=== PATIENT | female | born 1960 | race Caucasian/White ===

== ENCOUNTER → 2018-03-27 | Outpatient (CLI) | payer OTHER | LOC: ZCOL.LAB 15:28 | DX: M25.571 Pain in right ankle and joints of right foot (principal) ==

== ENCOUNTER 2020-02-24 18:28 | Emergency (ER) | payer OTHER ==
[~2020-02-24] VITALS: Ht 157.5 cm; Wt 72.7 kg
[2020-02-24 18:28] VITALS: TEMP 100
[2020-02-24 21:25] VITALS: BP 116/62; PULSE 89
== END 2020-02-24 21:25 ==
LOC: COL.ER 18:28
DX: S82.302A Unspecified fracture of lower end of left tibia, initial encounter for closed fracture (principal); S82.832A Other fracture of upper and lower end of left fibula, initial encounter for closed fracture; I10 Essential (primary) hypertension; E11.9 Type 2 diabetes mellitus without complications; Z79.4 Long term (current) use of insulin; W19.XXXA Unspecified fall, initial encounter; X50.1XXA Overexertion from prolonged static or awkward postures, initial encounter; Y92.009 Unspecified place in unspecified non-institutional (private) residence as the place of occurrence of the external cause
CPT/HCPCS: J0295; J0690; J3010; J7030; Q4045

== ENCOUNTER → 2020-07-14 | Outpatient (REF) | payer OTHER | LOC: ZCOL.LAB 17:06 | DX: T81.89XA Other complications of procedures, not elsewhere classified, initial encounter (principal) ==

== ENCOUNTER 2020-08-02 08:51 | Emergency (ER) | payer OTHER ==
[~2020-08-02] VITALS: Ht 160 cm; Wt 72.7 kg
[2020-08-02 08:54] VITALS: TEMP 97.3
[2020-08-02 09:11] LABS: BASO # 0.1 (0.0-0.2); BASO % 1.1 % (0.0-2.0); EOS # 0.5 (0.0-0.7); EOS % 5.7 % (0-4.0); GRAN # 4.6 (1.4-6.5); GRAN % 56.3 % (42.2-75.2); HEMOGLOBIN 10.4 g/dl (12.5-16.0); LYMPH % 24.9 % (20.0-51.0); MEAN CELL VOLUME 86 fl (80.0-100.0); MEAN CORPUSCULAR HEMOGLOBIN 27 pg (27.0-31.0); MEAN CORPUSCULAR HGB CONC 32 g/dl (33.0-37.0); MEAN PLATELET VOLUME 8.9 fl (7.4-10.4); MONO % 11.8 % (1.7-9.3); PLATELET COUNT 421 K/mm3 (130-400); RED BLOOD COUNT 3.82 M/mm3 (4.10-5.30); REDCELL DISTRIBUTION WIDTH-CV 14.5 % (11.5-14.5)
[2020-08-02 09:25] LABS: ALBUMIN 4.2 gm/dL (3.5-5.0); BILIRUBIN,TOTAL 0.3 mg/dL (0.0-1.0); C-REACTIVE PROTEIN 1.9 mg/dL (0.0-0.9); CALCIUM 9.5 mg/dL (8.4-10.2); CREATININE, serum 1.03 (0.52-1.25); POTASSIUM 4.1 mmol/L (3.4-5.0); TOTAL PROTEIN 8.4 gm/dL (6.4-8.2)
[2020-08-02 09:55] VITALS: BP 122/73; PULSE 82
== END 2020-08-02 09:50 | disposition home or self-care (01) ==
LOC: COL.ER 08:51
PROVIDERS: Family Medicine
DX: E10.649 Type 1 diabetes mellitus with hypoglycemia without coma (principal); Z88.1 Allergy status to other antibiotic agents
CPT/HCPCS: J7120

== ENCOUNTER → 2020-08-14 | Outpatient (CLI) | payer OTHER ==
[~2020-08-14] MED LIST: ASPI325T6 PO; BACTRIM DS 8001 TAB PO; DUO-KAPS1 CAP PO; NORCO 325 MG-7.1 TAB PO; NOVOLOG FLEX100 U/ML SQ; OSCAL 500 TAB500 MG PO; PRINIVIL20 MG PO; TRESIBA100 UNIT/1 SQ; TYLENOL 325MG325 MG PO; VITAMIN C500 MG PO
[2020-08-14 13:20] LABS: BASO # 0.1 (0.0-0.2); EOS # 0.3 (0.0-0.7); EOS % 4.6 % (0-4.0); GRAN # 4.5 (1.4-6.5); GRAN % 66.9 % (42.2-75.2); HEMOGLOBIN 10.3 g/dl (12.5-16.0); LYMPH # 1.4 (1.2-3.4); LYMPH % 20.6 % (20.0-51.0); MEAN CELL VOLUME 89 fl (80.0-100.0); MEAN CORPUSCULAR HEMOGLOBIN 28 pg (27.0-31.0); MEAN CORPUSCULAR HGB CONC 31 g/dl (33.0-37.0); MEAN PLATELET VOLUME 8.8 fl (7.4-10.4); MONO # 0.4 (0.1-0.6); MONO % 6.6 % (1.7-9.3); PLATELET COUNT 424 K/mm3 (130-400); RED BLOOD COUNT 3.68 M/mm3 (4.10-5.30); REDCELL DISTRIBUTION WIDTH-CV 14.4 % (11.5-14.5)
[2020-08-14 13:22] LABS: HEMATOCRIT 32.9 % (37.0-47.0)
[2020-08-14 13:40] LABS: ALBUMIN 4.2 gm/dL (3.5-5.0); BILIRUBIN,TOTAL 0.2 mg/dL (0.0-1.0); C-REACTIVE PROTEIN 2.6 mg/dL (0.0-0.9); CALCIUM 9.7 mg/dL (8.4-10.2); CREATININE, serum 0.96 (0.52-1.25); POTASSIUM 4.5 mmol/L (3.4-5.0); TOTAL PROTEIN 8.3 gm/dL (6.4-8.2)
[2020-08-14 14:27] LABS: ERYTHROCYTE SEDIMENTATION RATE 67 mm/hr (0-30)
== END ==
LOC: COL.LAB
PROVIDERS: Nurse Practitioner
DX: T81.40XA Infection following a procedure, unspecified, initial encounter (principal)

== ENCOUNTER 2020-09-04 07:30 | Inpatient (IN) | payer OTHER ==
[~2020-09-04] VITALS: Ht 160 cm; Wt 75.0 kg
[2020-09-04] MEDS ORDERED: NOVOLOG FLEX100 U/ML SQ ×3 (08:08→10:35)
[2020-09-04] MEDS ORDERED: PRINIVIL20 MG PO (08:09)
[2020-09-04] MEDS ORDERED: TRESIBA100 UNIT/1 SQ (08:09)
[2020-09-04 09:11] LABS: BASO # 0.1 (0.0-0.2); BASO % 1.2 % (0.0-2.0); EOS # 0.1 (0.0-0.7); EOS % 1.5 % (0-4.0); GRAN # 5.9 (1.4-6.5); GRAN % 78.1 % (42.2-75.2); LYMPH # 0.9 (1.2-3.4); LYMPH % 11.3 % (20.0-51.0); MEAN CELL VOLUME 88 fl (80.0-100.0); MEAN CORPUSCULAR HGB CONC 32 g/dl (33.0-37.0); MEAN PLATELET VOLUME 8.8 fl (7.4-10.4); MONO # 0.6 (0.1-0.6); MONO % 7.5 % (1.7-9.3); PLATELET COUNT 475 K/mm3 (130-400); RED BLOOD COUNT 3.53 M/mm3 (4.10-5.30); REDCELL DISTRIBUTION WIDTH-CV 14.8 % (11.5-14.5)
[2020-09-04 09:13] LABS: INR 1.1 (0.8-3.0); PROTHROMBIN TIME 12.3 SECONDS (9.7-12.8)
[2020-09-04 09:16] LABS: ALANINE AMINOTRANSFERASE 22 U/L (4-34); ALBUMIN 4.6 gm/dL (3.5-5.0); ALKALINE PHOSPHATASE 126 U/L (50-136); ANION GAP 11 mmol/L (7-16); AST,SGOT 40 U/L (15-37); BILIRUBIN,TOTAL 0.3 mg/dL (0.0-1.0); BLOOD UREA NITROGEN 33 mg/dL (7-17); CALCIUM 9.9 mg/dL (8.4-10.2); CARBON DIOXIDE 26 mmol/L (22-30); CHLORIDE 102 mmol/L (98-107); CREATININE, serum 1.33 (0.52-1.25); GLUCOSE 68 mg/dL (74-106); HEMATOCRIT 30.9 % (37.0-47.0); HEMOGLOBIN 9.8 g/dl (12.5-16.0); LIPASE 50 U/L (23-300); MEAN CORPUSCULAR HEMOGLOBIN 28 pg (27.0-31.0); SODIUM 139 mmol/L (137-145); TOTAL PROTEIN 8.6 gm/dL (6.4-8.2)
[2020-09-04 09:29] LABS: TROPONIN-I < 0.012 ng/mL (0.000-0.035)
[2020-09-04] MEDS ORDERED: BACTRIM DS 8001 TAB PO (11:19)
--- NOTE | 2020-09-04 11:45 | NUR ---
PATIENT IS A&O. VSS. PATIENT C/O SEVERE PAIN IN LLE THAT IS UNRELIEVED WITH PAIN MEDS. ER GAVE IV FENTANYL, IV MORPHINE, IV ATIVAN AND ORAL PERCOCET AND PATIENT IS STILL MOANING, RESTLESS, AND APPEARS VERY ANXIOUS. B/P AND HR AND WNL. AFTER GETTING LAST DOSE OF IV PAIN MEDS, ER NOTED DROP IN O2 SATS AND PLACED PATIENT ON 1L PER NC, PATIENT NOW IN UPPER 90'S ON 1L. NOTED LLE IS SLIGHTLY SHORTENED AND IS SWOLLEN AT THE HIP. PATIENT REPORTS SHE LIVES AT HOME ALONE AND FELL. TEDS & SCD'S TO LLE. POSITIVE PEDAL PULSES TO BLE. IV FLUIDS INFUSING VIA PUMP INTO RIGHT AC IV. BS IS 83. NO C/O N/V. HEAD TO TOE ASSESSMENT COMPLETE. AT BEDSIDE.
--- NOTE | 2020-09-04 13:15 | NUR ---
PATIENT C/O SEVERE PAIN IN LLE. PATIENT VERY RESTLESS AND MOVE AROUND A LOT. PATIENT FOUND WITH BOTH BLE OVER BED RAIL. NURSING EDUCATED PATIENT ABOUT SAFETY AND NOT MOVING AROUND THE FRACTURED EXTREMITY. PATIENT SEEMS ANXIOUS AND TAKES IN LIMITED EDUCATION PROVIDED. BED ALARM ON. REPOSITIONED PATIENT BACK UP IN BED. PLACED PILLOW UNDER LLE. GAVE PRN NORCO FOR PAIN. WILL MONITOR.
--- NOTE | 2020-09-04 15:00 | NUR ---
PLACED GIBSON PER ORDERS. PATIENT TOLERATED WELL, NOTED 700CC OF BRIGHT YELLOW URINE. UA SENT TO LAB.
[2020-09-04 15:29] LABS: MUCOUS Present /lpf; PH 7 (5-8); SQUAMOUS EPITHELIAL 0-2 /hpf; URINE APPEARANCE Clear; URINE BACTERIA Rare /hpf; URINE BILIRUBIN Negative (NEGATIVE); URINE BLOOD Negative (NEGATIVE); URINE COLOR Yellow; URINE GLUCOSE Negative (NEGATIVE); URINE KETONE Trace (NEGATIVE); URINE LEUKOCYTE ESTERASE Negative (NEGATIVE); URINE NITRATE Negative (NEGATIVE); URINE PROTEIN(semi-quant) Negative (NEGATIVE); URINE RBC 0-2 /hpf; URINE UROBILINOGEN Negative (NEGATIVE)
--- NOTE | 2020-09-04 15:29 | NUR ---
WENT TO RE-ASSESS PAIN AFTER MEDS. PATIENT ON PHONE INTERVIEW FOR LAB. WILL CHECK BACK.
[2020-09-04 15:43] LABS: COLLECTION METHOD CATHETER
--- NOTE | 2020-09-04 16:10 | NUR ---
AND HOSPITALIST TRISTEN ROUNDING AT BEDSIDE. NURSING AND CAPSTONE STUDENT AT BEDSIDE. GAVE PRN OXYCODONE FOR PAIN.
[2020-09-04 16:28] VITALS: BP 145/54; PULSE 94; TEMP 98.9
[2020-09-04 20:08] VITALS: BP 121/62; PULSE 84; TEMP 98.1
--- NOTE | 2020-09-04 21:30 | NUR ---
Patient has lots of complaints of pain. Her breathing is labored and tachypneic. She is over on the right side of her bed with her head and shoulders hanging over the rail. Offered to help reposition patient but patient refused stating this is how she could get comfortable. PRN morphine and ativan given per orders.
--- NOTE | 2020-09-04 22:00 | NUR ---
Patient seems to be a little more comfortable. Breathing is slower and less labored. Patient still positioned with shoulders over the rail.
[2020-09-05] VITALS (11 sets, daily range): BP systolic 92–140; BP diastolic 42–80; PULSE 72–88; TEMP 97.5–98.3
--- NOTE | 2020-09-05 05:51 | NUR ---
Patient woke up with complaints of pain every few hours throughout the night. Morphine given as needed. Patient has been NPO since midnight for surgery today.
--- NOTE | 2020-09-05 07:30 | NUR ---
PATIENT IS VERY RESTLESS UPON WAKING. C/O SEVERE PAIN IN LEFT HIP AND DIDN'T RATE IT WHEN ASKED. PATIENT ASKING TO STAND UP OR DANGLE AT BEDSIDE. NURSING EDUCATED PATIENT ABOUT FRACTURE AND SAFETY. GAVE PRN IV MORPHINE AND IV ATIVAN PER ORDERS. PATIENT WAS ABLE TO SETTLE DOWN AND SLEEP FOR A COUPLE HOURS. SURGICAL CONSENT OBTAINED BEFORE. NO OTHER NEEDS.
[2020-09-05 07:31] LABS: BASO # 0.1 (0.0-0.2); EOS # 0.3 (0.0-0.7); EOS % 3.7 % (0-4.0); GRAN # 4.2 (1.4-6.5); GRAN % 63.1 % (42.2-75.2); HEMATOCRIT 26.6 % (37.0-47.0); HEMOGLOBIN 8.7 g/dl (12.5-16.0); LYMPH # 1.5 (1.2-3.4); LYMPH % 22.2 % (20.0-51.0); MEAN CELL VOLUME 87 fl (80.0-100.0); MEAN CORPUSCULAR HEMOGLOBIN 28 pg (27.0-31.0); MEAN CORPUSCULAR HGB CONC 33 g/dl (33.0-37.0); MEAN PLATELET VOLUME 9.4 fl (7.4-10.4); MONO # 0.7 (0.1-0.6); MONO % 9.9 % (1.7-9.3); PLATELET COUNT 390 K/mm3 (130-400); RED BLOOD COUNT 3.06 M/mm3 (4.10-5.30); REDCELL DISTRIBUTION WIDTH-CV 15.2 % (11.5-14.5)
[2020-09-05 07:40] LABS: CALCIUM 8.7 mg/dL (8.4-10.2); CREATININE, serum 0.97 (0.52-1.25); POTASSIUM 4.6 mmol/L (3.4-5.0)
--- NOTE | 2020-09-05 10:55 | NUR ---
PATIENT NOW AWAKE AND LEANING OVER BED RAIL, RESTLESS AND PANTING IN PAIN. PATIENT STILL HAVING A HARD TIME KEEPING EYES OPEN BUT RESPONDS APPROPRIATELY. GAVE PRN IV MORPHINE PER REQUEST. PATIENT SCHEDULED FOR SURGERY AT NOON AND SHOULD GO DOWN TO OR BE FOR TO LONG. PATIENT POSITIONED TO COMFORT. BED ALARM ON. GIBSON TO DD, EMPTIED. PRE-OP IV FLUIDS STARTED PER ORDERS. CONSENT ON CHART.
--- NOTE | 2020-09-05 11:15 | NUR ---
PATIENT GOING DOWN TO SURGERY. CONSENT ON CHART. IV FLUIDS VIA GRAVITY. PATIENT OFF FLOOR.
--- NOTE | 2020-09-05 15:08 | NUR ---
Supervisor Public Health Nursing attempted intake but patient reports she is in severe pain and cannot tolerate questions. Patient still in surgery at this time. SW will follow up tomorrow.
--- NOTE | 2020-09-05 16:30 | NUR ---
ROUNDING ON PATIENT, SOUND ASLEEP AND SNORING. VSS. NO NEEDS.
--- NOTE | 2020-09-05 18:00 | NUR ---
PATIENT IS NOW WAKING UP POST OP. DROWSY AND STILL OUT OF IT. PATIENT C/O SLEEPING ON HER BACK AND HAVING THE WEDGE PILLOW INPLACE POST OP. PATIENT REPOSITIONED UP IN BED TO COMFORT. VSS. DINNER TRAY ORDERED. BS WAS 232, SSI GIVEN. NO C/O N/V. CALL LIGHT IN REACH.
--- NOTE | 2020-09-05 20:30 | NUR ---
Patient done with post op vitals. VSS. Patient is complaining she cannot get comfortable and is having a lot of pain. Repositioned patient off of her left side. PRN morphine and ativan administered. Patient now resting in bed sleeping some. No other needs at this time. Call light is within reach.
[2020-09-06] VITALS (7 sets, daily range): BP systolic 108–140; BP diastolic 41–64; PULSE 78–94; TEMP 98.2–99.1
--- NOTE | 2020-09-06 04:33 | NUR ---
Patient took off wedge by herself and refuses to put it back on. Educated patient on importance of wearing it to follow hip percautions such as not crossing her legs over her midline. Patient stated she was aware but could not handle it. Patient laying leaned on her right side. Placed a pillow in between her knees. Morphine administered for pain. Call light in reach.
--- NOTE | 2020-09-06 04:57 | NUR ---
Patient yelling out for help. When entering the room, patient is panting and leaning her shoulders over the bed rail. Administered Page for pain. Reminded patient about the importance of the positioning of her hip.
--- NOTE | 2020-09-06 07:14 | NUR ---
Lying in bed with eyes open. Alert and oriented x4. Rates pain in left leg 1/, describes as sore. Is aware that PT and OT will come to work with her today, is nervous about pain but excited to get up out of the bed. Does not like to use the wedge between her legs as she feels that it makes her pain worse, refuses to use. Normal movement to left lower extremity. Aquacel to left hip CDI. Patient will order breakfast at this time. Denies additional needs at this time.
[2020-09-06 07:42] LABS: MEAN CELL VOLUME 87 fl (80.0-100.0); MEAN CORPUSCULAR HGB CONC 32 g/dl (33.0-37.0); MEAN PLATELET VOLUME 9.5 fl (7.4-10.4); PLATELET COUNT 302 K/mm3 (130-400); REDCELL DISTRIBUTION WIDTH-CV 14.8 % (11.5-14.5)
[2020-09-06 07:54] LABS: HEMATOCRIT 23.6 % (37.0-47.0); HEMOGLOBIN 7.6 g/dl (12.5-16.0); MEAN CORPUSCULAR HEMOGLOBIN 28 pg (27.0-31.0)
[2020-09-06 07:57] LABS: CALCIUM 8.6 mg/dL (8.4-10.2); CREATININE, serum 0.73 (0.52-1.25); POTASSIUM 4.5 mmol/L (3.4-5.0)
--- NOTE | 2020-09-06 09:47 | NUR ---
Initial visit; Patient thanked Washer And Capper Machine Operator for looking in on her and offering encouragement and God's blessings. Patient thanked Washer And Capper Machine Operator for offering Morning Prayer over the intercom every morning.
--- NOTE | 2020-09-06 11:02 | NUR ---
Patient sitting up in recliner. Rates pain 1/10, does not feel she needs pain medication at this time but will let me know when she does. Patient will order lunch at this time. Denies additional needs.
--- NOTE | 2020-09-06 11:19 | NUR ---
Tuber Machine Cutter met with patient to discuss discharge planning. Patient lives alone in [place] and makes the comment that she should have never moved to [place] from [place]. Patient states she does not care for [place]. Patient does not have a primary care physician and was not interested in getting set up with a PCP at this time in [place]. Patient states she was seeing a PCP in [place]. Patient obtains medications from [facility] and advised she has crutches and a walking boot at home. Patient states she is normally independent with ADLS. Patient reports her sister, Angélica is her DPOA-HC although SW did not locate copy in EMR. Patient states she has not told her sister about her hospitalization and surgery. SW reviewed recommendation for post acute rehab. Patient is open to this but also expressed concern about how she would pay her bills if she cannot work. SW advised rehab would be short term. Patient is agreeable to have referrals sent to [facility] and the three local [facility]: [facility] [address], and [facility]. Patient did not want a referral sent to [facility]. SW contacted [facility] Director to give referral. SW then contacted the three local SNFs and faxed referrals. SW will continue to follow.
--- NOTE | 2020-09-06 11:54 | NUR ---
Rating pain 2/10 in left leg and would like pain medication. Administer pain medication as prescribed. Remains sitting in recliner, waiting on lunch. Denies needs.
--- NOTE | 2020-09-06 16:05 | NUR ---
Cord Tire Builder spoke with Jessica at [facility] who advised they would have to decline referral. Jessica reports that patient's insurance has skilled benefits however she would be required to pay 100% until her $3000 deductible is met and per her financial team, patient has only met roughly $1200 of her deductible. Jessica states after deductible is met, patient would pay 40% out of pocket until her out of pocket of $8000 is met. ESTHER also spoke with Cleveland at [facility] who advised they can clinically accept, however are still waiting on insurance authorization which they have submitted for. Cleveland states he believes they should be in network with patient's insurance but patient may have a $500 co pay. ESTHER spoke with IPR Director Perri who may not have bed availability for patient.
--- NOTE | 2020-09-06 16:15 | NUR ---
Receive call from wound care in regards to patient needing dressing change to left lower extremity from prior procedure. Explain that I would need to talk with the patient to see area and what was needed and they will call back. Speak with the patient and she says that she has three areas to her left ankle area that she applies Mepilex AG, covers with telfa, then wraps with gregoria wrap. Remove current dressing from site. Clean each area with saline and q-tips. Small amount of yellow discharge from sites. Areas dried. Mepilex AG cut to fit wound areas, cover with telfa, then wrap with gregoria wrap. Wound care calls back and is updated that dressing was changed and what was used to change it. Patient also speaks to wound care at this time. Patient says that her pain is starting to increase in her left leg and would like pain medication. Will administer as prescribed.
--- NOTE | 2020-09-06 19:30 | NUR ---
RECEIVED CHANGE OF SHIFT REPORT FROM DAY SHIFT NURSE. PATIENT UP IN CHAIR, REPORTS HOSP BED UNCOMFORTABLE, TOO SOFT. AGREED TO TRY OVERLAY AIR MATTRESS TO TRY TO SLEEP IN BED TONIGHT. DENIES ANY OTHER NEEDS DURING REPORT.
--- NOTE | 2020-09-06 20:00 | NUR ---
DECREASED STRENGTH TO LLE S/P HIP SURGERY. DENIES NUMBNESS/TINGLING TO EXTREMITIES. DENIES CHEST PAIN/SOA/NAUSEA AT THIS TIME. GIBSON IN PLACE AND DRAINING.
[2020-09-07 03:56] VITALS: BP 128/62; PULSE 76; TEMP 97.1
[2020-09-07 06:47] LABS: MEAN CELL VOLUME 89 fl (80.0-100.0); MEAN CORPUSCULAR HGB CONC 31 g/dl (33.0-37.0); MEAN PLATELET VOLUME 9.4 fl (7.4-10.4); PLATELET COUNT 332 K/mm3 (130-400); RED BLOOD COUNT 2.95 M/mm3 (4.10-5.30); REDCELL DISTRIBUTION WIDTH-CV 15.2 % (11.5-14.5)
[2020-09-07 06:48] LABS: HEMATOCRIT 26.2 % (37.0-47.0); HEMOGLOBIN 8.2 g/dl (12.5-16.0); MEAN CORPUSCULAR HEMOGLOBIN 28 pg (27.0-31.0)
[2020-09-07 07:03] LABS: CALCIUM 8.9 mg/dL (8.4-10.2); CREATININE, serum 0.79 (0.52-1.25); POTASSIUM 4.1 mmol/L (3.4-5.0)
[2020-09-07 07:22] VITALS: BP 127/57; PULSE 79; TEMP 98.2
--- NOTE | 2020-09-07 07:40 | NUR ---
CHANGE OF SHIFT REPORT GIVEN TO DAY SHIFT NURSE, KENNY CARMICHAEL.
--- NOTE | 2020-09-07 08:00 | NUR ---
PATIENT IS ORIENTED BUT DROWSY FROM PAIN MEDS. PATIENT ASSISTED INTO BEDSIDE CHAIR WITH 1 ASSIST AND WALKER FOR BREAKFAST. METER SHOP SUPERINTENDENT DC'D GIBSON AND PATIENT WAS ABLE TO VOID. AQUACEL DRESSING TO LEFT HIPS IS CD&I. LEFT EDWARDS DRESSING FROM PREVIOUS TIB/FIB FRACTURE IS CD&I WITH ACEWRAP. TEDS TO RLE. SCD'S OFF. PT/OT CONSULTED. HEAD TO TOE ASSESSMENT COMPLETE. STUDENT NURSE WORKING WITH PATIENT TODAY, SEE STUDENT NOTES AND ASSESSMENT. PATIENT SEEMS ANNOYED TO BE ASSESSED BY BOTH A NURSE AND STUDENT NURSE. PATIENT IS EASILY AGGITATED AND SEEMS ANNOYED WITH CARES AND VITALS. PATIENT WANTING TO BE LEFT ALONE FOR A WHILE.
[2020-09-07 13:53] VITALS: BP 125/48; PULSE 81; TEMP 98.4
--- NOTE | 2020-09-07 14:11 | NUR ---
Human Resource Consultant gave referral to [facility] out of [place] as Perri, IPR Director advised they do not have any beds available at this time. ESTHER faxed clinical updates to Cleveland at [facility] [address] who advised he is still waiting on insurance authorization. SW met with patient to provide update. Patient expressed disappointment that IPR is not available. Patient is willing to go to [facility]. SW discussed the possibility of some out of pocket cost depending on what her insurance costs. Patient states she will have to make it work. SW discussed referrals to [facility] or [facility] and patient states she will not go out of town.
[2020-09-07 16:50] VITALS: BP 121/50; PULSE 84; TEMP 98.5
--- NOTE | 2020-09-07 18:00 | NUR ---
PATIENT VOICED CONCERNS ABOUT HER PREVIOUS TIB/FIB FRACTURE REPAIR THE DRESSING CHANGED. PATIENT REPORTS SHE WAS DOING EVENING DRESSING CHANGES TO HER LEFT LOWER EXTREMITY BEFORE BED, SEE ORDERS. PATIENT SEEMS TO GET FRUSTERATED EASILY AND IS, AT TIMES, HARD TO TALK DOWN. NURSING VISITED WITH PATIENT ABOUT THIS FOR AWHILE AND PATIENT SEEMS BETTER NOW. PATIENT HAS DISPLAYED IRRITABLE BEHAVIORS OFF AND ON THROUGHOUT THE SHIFT FOR MULTIPLE DIFFERENT REASONS.
[2020-09-07 19:36] VITALS: BP 117/52; PULSE 80; TEMP 97.8
--- NOTE | 2020-09-07 21:00 | NUR ---
Patient sitting up in chair. Kelso administered with bedtime medications. Dressing change to her left lower extremity done per patient request. Aquacell to left hip clean, dry, and intact. IV to left AC patent. No other needs at this time. Call light in reach.
[2020-09-07 23:13] VITALS: BP 123/50; PULSE 70; TEMP 97.5
[2020-09-08 04:13] VITALS: BP 121/73; PULSE 90; TEMP 97.4
--- NOTE | 2020-09-08 05:34 | NUR ---
Patient asked for her blood sugar to be taken because she felt like it was a little low. PAtient's blood sugar was 27. Hypoglycemic protocol administered D50. Will recheck in 15 minutes.
--- NOTE | 2020-09-08 06:01 | NUR ---
Patient's blood sugar is now 153.
[2020-09-08 06:50] LABS: MEAN CELL VOLUME 89 fl (80.0-100.0); MEAN CORPUSCULAR HGB CONC 31 g/dl (33.0-37.0); MEAN PLATELET VOLUME 9.5 fl (7.4-10.4); PLATELET COUNT 389 K/mm3 (130-400); RED BLOOD COUNT 3.03 M/mm3 (4.10-5.30); REDCELL DISTRIBUTION WIDTH-CV 15.3 % (11.5-14.5)
[2020-09-08 06:52] LABS: HEMATOCRIT 27.1 % (37.0-47.0); HEMOGLOBIN 8.4 g/dl (12.5-16.0); MEAN CORPUSCULAR HEMOGLOBIN 28 pg (27.0-31.0)
[2020-09-08 06:58] LABS: CALCIUM 9.1 mg/dL (8.4-10.2); CREATININE, serum 0.93 (0.52-1.25); POTASSIUM 4.1 mmol/L (3.4-5.0)
--- NOTE | 2020-09-08 07:30 | NUR ---
Patient is sitting up in the chair. Her Glucose was very low this morning so we discussed holding the insulin and rechecking it 2 hours after she eats. She was upset about it but explained she already had a huge drop this morning. Patient denies pain at this time. Dressing to hip is C/D/I. Encouraged patient to do incentive spirometer every hour. Patient is alert and oriented. No other changes at this time. Call light within reach.
[2020-09-08 08:46] VITALS: BP 105/52; PULSE 80; TEMP 97.8
[2020-09-08 13:31] VITALS: BP 105/44; PULSE 87; TEMP 98.3
--- NOTE | 2020-09-08 15:35 | NUR ---
Lead Java Programmer was contacted by Cleveland at [facility] [address] [facility] who advised he received authorization from patient's insurance. Cleveland advised patient will be billed for a $500 co pay. ESTHER met with patient to provide this update. Patient is agreeable to discharge to [facility] and verbalized understanding of the copay. ESTHER collaborated with Hospitalist who advised patient is not ready for discharge today, but possibly tomorrow. ESTHER updated Cleveland and patient.
[2020-09-08 17:14] VITALS: BP 115/49; PULSE 75; TEMP 98.3
--- NOTE | 2020-09-08 18:30 | NUR ---
Patient has been doing well this afternoon. Pain is well controlled with Roxicodone. No complaints of nausea. Patient sat up in the chair most the day. Encouraged her to keep her leg elevated, she stated that makes her back hurt. Patient should be discharging tomorrow to [facility]. No other changes at this time. Call light within reach.
[2020-09-08 19:22] VITALS: BP 109/54; PULSE 72; TEMP 98.4
--- NOTE | 2020-09-08 20:00 | NUR ---
Report received, assumed care for film processing shift supervisor. Sitting up in recliner. Assessment complete. A&Ox3. Denies pain/nausea/shortness of breath. VS stable. Voiding without difficulty. +flatus. Dressing changed to left foot-three small ulcers. Silver nitrate/non stick pad/gregoria per patients request. Dressing to left [id number]. States she removed her albaro hose from her right lower extremity-states doctor today stated that was okay. Plan of care discussed for this shift to include HS meds/pain meds/dressing change/blood sugar monitoring/calling for questions/concerns. Denies current needs. Call light in reach. Will monitor.
--- NOTE | 2020-09-08 22:42 | NUR ---
Called with c/o pain to awa morrissey-rating pain 5/10 on pain scale-described as constant ache with intermittent sharp pains. Oxycodone given per dr enriquez. Will continue to monitor.
--- NOTE | 2020-09-08 23:30 | NUR ---
Called stating pain in left hip is still 4/10 on pain scale-described as constant ache with intermittent throbbing. Refused ice pack. States it doesnt and wont help. Has been sitting in recliner since this nurse arrived at 1830. Refusing to lay down. Did agree to ambulate some to see if that helped. States she can wait another hour for PO pain meds instead of taking IV morphine. Will re-assess pain level at 0030.
[2020-09-09 00:01] VITALS: BP 118/42; PULSE 73; TEMP 98.1
--- NOTE | 2020-09-09 00:30 | NUR ---
Still rating pain 4/10 on pain scale to left hip-described as constant ache with intermittent throbbing. Rio one tab given per dr order. Will re-assess.
--- NOTE | 2020-09-09 01:42 | NUR ---
Resting eyes closed in recliner. No s/s of pain/discomfort noted. Call light in reach. Will monitor.
[2020-09-09 04:12] VITALS: BP 98/52; PULSE 73; TEMP 98.1
--- NOTE | 2020-09-09 05:35 | NUR ---
Report from PCT of bedside glucose of 312. Notified hospitalist-RADHA Dunham-celia to give sliding scale dose early. GIven at this time. Also c/o pain to left hip-rating pain 6/10 on pain scale-described as constant ache with sharp jabs. Oxycodone given per dr order. Still refusing ice pack. SCDs/TEDs refused. Denies any other needs. Call light in reach. Will monitor.
[2020-09-09 06:34] LABS: BASO # 0.1 (0.0-0.2); BASO % 1.1 % (0.0-2.0); EOS # 0.6 (0.0-0.7); GRAN # 3.5 (1.4-6.5); GRAN % 63.1 % (42.2-75.2); LYMPH # 0.9 (1.2-3.4); LYMPH % 15.4 % (20.0-51.0); MEAN CELL VOLUME 90 fl (80.0-100.0); MEAN CORPUSCULAR HGB CONC 31 g/dl (33.0-37.0); MEAN PLATELET VOLUME 9.2 fl (7.4-10.4); MONO # 0.6 (0.1-0.6); MONO % 10.2 % (1.7-9.3); PLATELET COUNT 362 K/mm3 (130-400); RED BLOOD COUNT 2.88 M/mm3 (4.10-5.30); REDCELL DISTRIBUTION WIDTH-CV 15.1 % (11.5-14.5)
[2020-09-09 06:38] LABS: HEMATOCRIT 25.9 % (37.0-47.0); HEMOGLOBIN 7.9 g/dl (12.5-16.0); MEAN CORPUSCULAR HEMOGLOBIN 27 pg (27.0-31.0)
[2020-09-09 06:40] LABS: CREATININE, serum 0.83 (0.52-1.25); POTASSIUM 5.2 mmol/L (3.4-5.0)
[2020-09-09 07:18] VITALS: BP 101/51; PULSE 66; TEMP 98
[2020-09-09] MEDS ORDERED: ASPI325T6 PO (08:52)
[2020-09-09] MEDS ORDERED: OSCAL 500 TAB500 MG PO (08:53)
[2020-09-09] MEDS ORDERED: NORCO 325 MG-7.1 TAB PO (08:53)
[2020-09-09] MEDS ORDERED: TYLENOL 325MG325 MG PO (08:53)
[2020-09-09] MEDS ORDERED: VITAMIN C500 MG PO (08:54)
[2020-09-09] MEDS ORDERED: DUO-KAPS1 CAP PO (08:55)
[2020-09-09 11:29] VITALS: BP 107/52; PULSE 70; TEMP 98.1
--- NOTE | 2020-09-09 11:46 | NUR ---
Patient will discharge to [facility] today 09/09. ESTHER faxed orders and coordinated care and transportation with Cleveland at [facility]. Patient's transport will arrive at 1300. Patient contacted family members to notify them of discharge. There are no new needs at this time.
[2020-09-09 12:10] VITALS: BP 107/52; PULSE 70; TEMP 98.1
--- NOTE | 2020-09-09 13:10 | NUR ---
Patient is discharging to [facility]. All belongings packed up and sent with patient. Attempted to call report but could not get through to the nurse taking over. Will try again. INT discontinued. Info packet sent with patient.
--- NOTE | 2020-09-09 14:30 | NUR ---
Report called to [facility].
== END 2020-09-09 13:15 | DRG 522 ==
LOC: COL.ER 07:30 → SURG 10:43
PROVIDERS: Emergency Medicine; Orthopaedic Surgery; Physician Assistant; ADMIT Student in an Organized Health Care Education/Training Program
PROC: 0SRB0J9 Replacement of Left Hip Joint with Synthetic Substitute, Cemented, Open Approach (ICD-10-PCS; principal; 2020-09-05 12:00)
DX: S72.002A Fracture of unspecified part of neck of left femur, initial encounter for closed fracture (principal); N17.9 Acute kidney failure, unspecified; E11.9 Type 2 diabetes mellitus without complications; I10 Essential (primary) hypertension; W01.0XXA Fall on same level from slipping, tripping and stumbling without subsequent striking against object, initial encounter; D64.9 Anemia, unspecified; D47.3 Essential (hemorrhagic) thrombocythemia; E11.649 Type 2 diabetes mellitus with hypoglycemia without coma; F41.9 Anxiety disorder, unspecified; Z20.822 Contact with and (suspected) exposure to COVID-19; Z66 Do not resuscitate
CPT/HCPCS: 99222-AI; 99231-AI; 99232-AI; 99233-AI; 99239; A4314; A9284; C1776; J0690; J1815; J2060; J2250; J2270; J2370; J2405; J2704; J3010; J7030; J7040; J7050

== ENCOUNTER → 2020-09-27 | Outpatient (CLI) | payer OTHER ==
[2020-09-27 09:35] LABS: BASO # 0.1 (0.0-0.2); BASO % 1.4 % (0.0-2.0); EOS # 0.3 (0.0-0.7); GRAN # 3.8 (1.4-6.5); GRAN % 58.4 % (42.2-75.2); LYMPH # 1.5 (1.2-3.4); LYMPH % 23.8 % (20.0-51.0); MEAN CELL VOLUME 91 fl (80.0-100.0); MEAN CORPUSCULAR HGB CONC 30 g/dl (33.0-37.0); MEAN PLATELET VOLUME 8.5 fl (7.4-10.4); MONO # 0.7 (0.1-0.6); MONO % 11.2 % (1.7-9.3); PLATELET COUNT 561 K/mm3 (130-400); RED BLOOD COUNT 3.55 M/mm3 (4.10-5.30); REDCELL DISTRIBUTION WIDTH-CV 16.2 % (11.5-14.5)
[2020-09-27 09:36] LABS: HEMATOCRIT 32.4 % (37.0-47.0); HEMOGLOBIN 9.8 g/dl (12.5-16.0); MEAN CORPUSCULAR HEMOGLOBIN 28 pg (27.0-31.0)
[2020-09-27 09:48] LABS: ALANINE AMINOTRANSFERASE 22 U/L (4-34); ALBUMIN 4.4 gm/dL (3.5-5.0); ALKALINE PHOSPHATASE 100 U/L (50-136); ANION GAP 13 mmol/L (7-16); AST,SGOT 29 U/L (15-37); BILIRUBIN,TOTAL < 0.1 mg/dL (0.0-1.0); BLOOD UREA NITROGEN 27 mg/dL (7-17); CALCIUM 9.6 mg/dL (8.4-10.2); CARBON DIOXIDE 25 mmol/L (22-30); CHLORIDE 100 mmol/L (98-107); CREATININE, serum 1.12 (0.52-1.25); GLUCOSE 74 mg/dL (74-106); POTASSIUM 4.4 mmol/L (3.4-5.0); SODIUM 137 mmol/L (137-145); TOTAL PROTEIN 8.9 gm/dL (6.4-8.2)
[2020-09-27 09:59] LABS: ERYTHROCYTE SEDIMENTATION RATE 44 mm/hr (0-30)
== END ==
LOC: COL.LAB 09:01
PROVIDERS: Nurse Practitioner
DX: B99.9 Unspecified infectious disease (principal)

== ENCOUNTER 2020-10-09 11:15 | Emergency (ER) | payer OTHER ==
[~2020-10-09] VITALS: Ht 160 cm; Wt 75.0 kg
[2020-10-09 11:19] VITALS: TEMP 97.8
[2020-10-09 12:02] LABS: BASO # 0.1 (0.0-0.2); BASO % 1.3 % (0.0-2.0); EOS # 0.2 (0.0-0.7); GRAN # 3.9 (1.4-6.5); GRAN % 65.3 % (42.2-75.2); HEMATOCRIT 32.3 % (37.0-47.0); HEMOGLOBIN 9.9 g/dl (12.5-16.0); LYMPH # 1.2 (1.2-3.4); MEAN CELL VOLUME 92 fl (80.0-100.0); MEAN CORPUSCULAR HEMOGLOBIN 28 pg (27.0-31.0); MEAN CORPUSCULAR HGB CONC 31 g/dl (33.0-37.0); MEAN PLATELET VOLUME 8.6 fl (7.4-10.4); MONO # 0.6 (0.1-0.6); MONO % 10.1 % (1.7-9.3); PLATELET COUNT 411 K/mm3 (130-400); RED BLOOD COUNT 3.51 M/mm3 (4.10-5.30); REDCELL DISTRIBUTION WIDTH-CV 15.9 % (11.5-14.5)
[2020-10-09 12:07] LABS: ALANINE AMINOTRANSFERASE 21 U/L (4-34); ALBUMIN 4.3 gm/dL (3.5-5.0); ALKALINE PHOSPHATASE 93 U/L (50-136); ANION GAP 9 mmol/L (7-16); AST,SGOT 32 U/L (15-37); BILIRUBIN,TOTAL < 0.1 mg/dL (0.0-1.0); BLOOD UREA NITROGEN 22 mg/dL (7-17); CALCIUM 9.5 mg/dL (8.4-10.2); CARBON DIOXIDE 29 mmol/L (22-30); CHLORIDE 102 mmol/L (98-107); CREATININE, serum 0.89 (0.52-1.25); GLUCOSE 56 mg/dL (74-106); POTASSIUM 4.2 mmol/L (3.4-5.0); SODIUM 139 mmol/L (137-145); TOTAL PROTEIN 8.6 gm/dL (6.4-8.2)
[2020-10-09 12:19] LABS: TROPONIN-I < 0.012 ng/mL (0.000-0.035)
[2020-10-09 13:55] VITALS: BP 146/70; PULSE 94
== END 2020-10-09 13:55 | disposition left against medical advice (07) ==
LOC: COL.ER 11:15
PROVIDERS: Emergency Medicine
DX: E11.649 Type 2 diabetes mellitus with hypoglycemia without coma (principal); Z88.1 Allergy status to other antibiotic agents; Z79.4 Long term (current) use of insulin; Z79.82 Long term (current) use of aspirin

== ENCOUNTER → 2020-11-08 | Outpatient (CLI) | payer OTHER ==
[2020-11-08 09:25] LABS: BASO # 0.1 (0.0-0.2); BASO % 0.9 % (0.0-2.0); EOS # 0.3 (0.0-0.7); EOS % 4.4 % (0-4.0); GRAN # 4.1 (1.4-6.5); GRAN % 64.3 % (42.2-75.2); LYMPH # 1.3 (1.2-3.4); LYMPH % 20.1 % (20.0-51.0); MEAN CELL VOLUME 92 fl (80.0-100.0); MEAN CORPUSCULAR HGB CONC 32 g/dl (33.0-37.0); MEAN PLATELET VOLUME 8.4 fl (7.4-10.4); MONO # 0.6 (0.1-0.6); PLATELET COUNT 319 K/mm3 (130-400); RED BLOOD COUNT 3.39 M/mm3 (4.10-5.30); REDCELL DISTRIBUTION WIDTH-CV 14.2 % (11.5-14.5)
[2020-11-08 09:27] LABS: HEMATOCRIT 31.2 % (37.0-47.0); HEMOGLOBIN 9.9 g/dl (12.5-16.0); MEAN CORPUSCULAR HEMOGLOBIN 29 pg (27.0-31.0)
[2020-11-08 09:37] LABS: ALANINE AMINOTRANSFERASE 20 U/L (4-34); ALBUMIN 4.1 gm/dL (3.5-5.0); ALKALINE PHOSPHATASE 91 U/L (50-136); ANION GAP 7 mmol/L (7-16); AST,SGOT 30 U/L (15-37); BILIRUBIN,TOTAL < 0.1 mg/dL (0.0-1.0); BLOOD UREA NITROGEN 29 mg/dL (7-17); C-REACTIVE PROTEIN 0.9 mg/dL (0.0-0.9); CALCIUM 9.2 mg/dL (8.4-10.2); CARBON DIOXIDE 29 mmol/L (22-30); CHLORIDE 101 mmol/L (98-107); CREATININE, serum 0.99 (0.52-1.25); GLUCOSE 115 mg/dL (74-106); POTASSIUM 5.5 mmol/L (3.4-5.0); SODIUM 137 mmol/L (137-145); TOTAL PROTEIN 7.5 gm/dL (6.4-8.2)
[2020-11-08 09:51] LABS: ERYTHROCYTE SEDIMENTATION RATE 42 mm/hr (0-30)
== END ==
LOC: COL.LAB 09:01
PROVIDERS: Nurse Practitioner
DX: B99.9 Unspecified infectious disease (principal)

== ENCOUNTER → 2020-11-28 | Outpatient (CLI) | payer OTHER ==
[2020-11-28 08:06] LABS: CHOLESTEROL RISK RATIO 2.8
== END ==
LOC: COL.LAB 07:17
DX: E78.5 Hyperlipidemia, unspecified (principal)

== ENCOUNTER 2020-12-08 08:37 | Emergency (ER) | payer OTHER ==
[~2020-12-08] VITALS: Ht 160 cm; Wt 75.0 kg
[2020-12-08 08:38] VITALS: TEMP 97.6
[2020-12-08 09:21] LABS: BASO # 0.1 (0.0-0.2); EOS # 0.3 (0.0-0.7); GRAN # 3.9 (1.4-6.5); GRAN % 54.7 % (42.2-75.2); HEMOGLOBIN 11.2 g/dl (12.5-16.0); LYMPH # 1.9 (1.2-3.4); LYMPH % 27.4 % (20.0-51.0); MEAN CELL VOLUME 90 fl (80.0-100.0); MEAN CORPUSCULAR HEMOGLOBIN 28 pg (27.0-31.0); MEAN CORPUSCULAR HGB CONC 32 g/dl (33.0-37.0); MONO # 0.9 (0.1-0.6); MONO % 12.8 % (1.7-9.3); PLATELET COUNT 371 K/mm3 (130-400); RED BLOOD COUNT 3.96 M/mm3 (4.10-5.30); REDCELL DISTRIBUTION WIDTH-CV 13.5 % (11.5-14.5)
[2020-12-08 09:23] LABS: HEMATOCRIT 35.6 % (37.0-47.0)
[2020-12-08 09:27] LABS: ALBUMIN 4.4 gm/dL (3.5-5.0); BILIRUBIN,TOTAL 0.2 mg/dL (0.0-1.0); CALCIUM 9.5 mg/dL (8.4-10.2); CREATININE, serum 0.98 (0.52-1.25); POTASSIUM 3.8 mmol/L (3.4-5.0); TOTAL PROTEIN 8.3 gm/dL (6.4-8.2)
[2020-12-08 09:54] VITALS: BP 131/66; PULSE 81
== END 2020-12-08 09:56 | disposition home or self-care (01) ==
LOC: COL.ER 08:37
PROVIDERS: Family Medicine
DX: E11.649 Type 2 diabetes mellitus with hypoglycemia without coma (principal); Z79.4 Long term (current) use of insulin
CPT/HCPCS: J7042

== ENCOUNTER → 2021-02-09 | Outpatient (CLI) | payer OTHER ==
[2021-02-09 10:14] LABS: BASO # 0.1 (0.0-0.2); BASO % 1.4 % (0.0-2.0); EOS # 0.2 (0.0-0.7); EOS % 4.2 % (0-4.0); GRAN # 3.5 (1.4-6.5); GRAN % 63.6 % (42.2-75.2); HEMOGLOBIN 10.8 g/dl (12.5-16.0); LYMPH # 1.1 (1.2-3.4); LYMPH % 19.9 % (20.0-51.0); MEAN CELL VOLUME 90 fl (80.0-100.0); MEAN CORPUSCULAR HEMOGLOBIN 29 pg (27.0-31.0); MEAN CORPUSCULAR HGB CONC 32 g/dl (33.0-37.0); MEAN PLATELET VOLUME 8.3 fl (7.4-10.4); MONO # 0.6 (0.1-0.6); MONO % 10.5 % (1.7-9.3); PLATELET COUNT 265 K/mm3 (130-400); RED BLOOD COUNT 3.77 M/mm3 (4.10-5.30); REDCELL DISTRIBUTION WIDTH-CV 14.1 % (11.5-14.5)
[2021-02-09 10:16] LABS: HEMATOCRIT 33.9 % (37.0-47.0)
[2021-02-09 10:26] LABS: ALANINE AMINOTRANSFERASE 27 U/L (4-34); ALBUMIN 4.3 gm/dL (3.5-5.0); ALKALINE PHOSPHATASE 76 U/L (50-136); ANION GAP 6 mmol/L (7-16); AST,SGOT 35 U/L (15-37); BILIRUBIN,TOTAL < 0.1 mg/dL (0.0-1.0); BLOOD UREA NITROGEN 24 mg/dL (7-17); CALCIUM 9.3 mg/dL (8.4-10.2); CARBON DIOXIDE 30 mmol/L (22-30); CHLORIDE 100 mmol/L (98-107); CREATININE, serum 1.06 (0.52-1.25); GLUCOSE 160 mg/dL (74-106); POTASSIUM 5.1 mmol/L (3.4-5.0); SODIUM 136 mmol/L (137-145); TOTAL PROTEIN 7.6 gm/dL (6.4-8.2)
[2021-02-09 10:37] LABS: ERYTHROCYTE SEDIMENTATION RATE 43 mm/hr (0-30)
== END ==
LOC: COL.LAB 09:24
DX: B99.9 Unspecified infectious disease (principal)

== ENCOUNTER → 2021-04-06 | Outpatient (CLI) | payer OTHER ==
[2021-04-06 08:39] LABS: BASO # 0.1 K/mm3 (0.0-0.2); BASO % 1.1 % (0.0-2.0); EOS # 0.2 K/mm3 (0.0-0.7); EOS % 3.2 % (0-4.0); GRAN # 3.7 K/mm3 (1.4-6.5); GRAN % 59.3 % (42.2-75.2); HEMOGLOBIN 11.2 g/dl (12.5-16.0); LYMPH # 1.4 K/mm3 (1.2-3.4); LYMPH % 22.3 % (20.0-51.0); MEAN CELL VOLUME 92 fl (80.0-100.0); MEAN CORPUSCULAR HEMOGLOBIN 29 pg (27.0-31.0); MEAN CORPUSCULAR HGB CONC 32 g/dl (33.0-37.0); MEAN PLATELET VOLUME 8.6 fl (7.4-10.4); MONO # 0.9 K/mm3 (0.1-0.6); MONO % 13.8 % (1.7-9.3); PLATELET COUNT 325 K/mm3 (130-400); RED BLOOD COUNT 3.86 M/mm3 (4.10-5.30); REDCELL DISTRIBUTION WIDTH-CV 13.5 % (11.5-14.5)
[2021-04-06 08:40] LABS: HEMATOCRIT 35.3 % (37.0-47.0)
[2021-04-06 08:56] LABS: ALBUMIN 3.7 gm/dL (3.4-4.8); BILIRUBIN,TOTAL 0.2 mg/dL (0.2-1.2); C-REACTIVE PROTEIN 0.9 mg/dL (0.00-0.50); CALCIUM 9.5 mg/dL (8.4-10.2); CREATININE, serum 0.99 mg/dL (0.57-1.11); POTASSIUM 4.4 mmol/L (3.5-4.5); TOTAL PROTEIN 7.6 gm/dL (6.2-8.1)
[2021-04-06 09:10] LABS: ERYTHROCYTE SEDIMENTATION RATE 32 mm/hr (0-30)
== END ==
LOC: COL.LAB 08:21
DX: B99.9 Unspecified infectious disease (principal)

== ENCOUNTER → 2021-06-01 | Outpatient (CLI) | payer OTHER ==
[2021-06-01 08:18] LABS: BASO # 0.1 K/mm3 (0.0-0.2); BASO % 1.3 % (0.0-2.0); EOS # 0.3 K/mm3 (0.0-0.7); EOS % 5.1 % (0-4.0); GRAN # 3.9 K/mm3 (1.4-6.5); GRAN % 63.7 % (42.2-75.2); HEMOGLOBIN 11.8 g/dl (12.5-16.0); LYMPH # 1.3 K/mm3 (1.2-3.4); LYMPH % 20.4 % (20.0-51.0); MEAN CELL VOLUME 90 fl (80.0-100.0); MEAN CORPUSCULAR HEMOGLOBIN 29 pg (27.0-31.0); MEAN CORPUSCULAR HGB CONC 32 g/dl (33.0-37.0); MEAN PLATELET VOLUME 8.3 fl (7.4-10.4); MONO # 0.6 K/mm3 (0.1-0.6); MONO % 9.2 % (1.7-9.3); PLATELET COUNT 317 K/mm3 (130-400); RED BLOOD COUNT 4.06 M/mm3 (4.10-5.30)
[2021-06-01 08:23] LABS: HEMATOCRIT 36.7 % (37.0-47.0)
[2021-06-01 08:38] LABS: ALBUMIN 3.8 gm/dL (3.4-4.8); BILIRUBIN,TOTAL 0.3 mg/dL (0.2-1.2); C-REACTIVE PROTEIN 1.66 mg/dL (0.00-0.50); CALCIUM 9.8 mg/dL (8.4-10.2); CREATININE, serum 0.9 mg/dL (0.57-1.11); POTASSIUM 4.5 mmol/L (3.5-4.5); TOTAL PROTEIN 7.8 gm/dL (6.2-8.1)
[2021-06-01 09:49] LABS: ERYTHROCYTE SEDIMENTATION RATE 37 mm/hr (0-30)
== END ==
LOC: COL.LAB 08:00
PROVIDERS: Nurse Practitioner
DX: B99.9 Unspecified infectious disease (principal)

== ENCOUNTER → 2021-06-05 | Outpatient (CLI) | payer OTHER ==
[2021-06-05 08:44] LABS: ALBUMIN 3.9 gm/dL (3.4-4.8); BILIRUBIN,TOTAL 0.2 mg/dL (0.2-1.2); CALCIUM 9.7 mg/dL (8.4-10.2); CREATININE, serum 0.93 mg/dL (0.57-1.11); POTASSIUM 4.6 mmol/L (3.5-4.5); TOTAL PROTEIN 7.8 gm/dL (6.2-8.1)
== END ==
LOC: COL.LAB 08:01
DX: E10.9 Type 1 diabetes mellitus without complications (principal)

== ENCOUNTER 2021-07-10 09:29 | Emergency (ER) | payer OTHER ==
[~2021-07-10] VITALS: Ht 160 cm; Wt 75.0 kg
[2021-07-10 09:30] VITALS: TEMP 97.6
[2021-07-10 10:24] VITALS: BP 161/87; PULSE 74
== END 2021-07-10 10:34 | disposition home or self-care (01) ==
LOC: COL.ER 09:29
DX: E10.649 Type 1 diabetes mellitus with hypoglycemia without coma (principal)

== ENCOUNTER → 2021-09-21 | Outpatient (CLI) | payer OTHER ==
[2021-09-21 09:41] LABS: BASO # 0.1 K/mm3 (0.0-0.2); BASO % 0.9 % (0.0-2.0); EOS # 0.2 K/mm3 (0.0-0.7); EOS % 2.8 % (0.0-4.0); GRAN # 4.1 K/mm3 (1.4-6.5); GRAN % 63.7 % (42.2-75.2); HEMOGLOBIN 12.1 g/dl (12.5-16.0); LYMPH # 1.5 K/mm3 (1.2-3.4); LYMPH % 23.1 % (20.0-51.0); MEAN CELL VOLUME 89 fl (80.0-100.0); MEAN CORPUSCULAR HEMOGLOBIN 29 pg (27-31); MEAN CORPUSCULAR HGB CONC 33 g/dl (33.0-37.0); MEAN PLATELET VOLUME 8.3 fl (7.4-10.4); MONO # 0.6 K/mm3 (0.1-0.6); MONO % 9.3 % (1.7-9.3); PLATELET COUNT 305 K/mm3 (130-400); RED BLOOD COUNT 4.18 M/mm3 (4.10-5.30); REDCELL DISTRIBUTION WIDTH-CV 13.4 % (11.5-14.5)
[2021-09-21 10:00] LABS: ALBUMIN 3.7 gm/dL (3.4-4.8); BILIRUBIN,TOTAL 0.2 mg/dL (0.2-1.2); C-REACTIVE PROTEIN 0.88 mg/dL (0.00-0.50); CALCIUM 9.5 mg/dL (8.4-10.2); CREATININE, serum 1.03 mg/dL (0.57-1.11); POTASSIUM 5.2 mmol/L (3.5-4.5); TOTAL PROTEIN 7.5 gm/dL (6.2-8.1)
[2021-09-21 10:13] LABS: ERYTHROCYTE SEDIMENTATION RATE 28 mm/hr (0-30)
== END ==
LOC: COL.LAB 09:10
PROVIDERS: Nurse Practitioner
DX: B99.9 Unspecified infectious disease (principal)

== ENCOUNTER → 2021-12-11 | Outpatient (CLI) | payer OTHER ==
[2021-12-11 09:35] LABS: BASO # 0.1 K/mm3 (0.0-0.2); EOS # 0.3 K/mm3 (0.0-0.7); EOS % 4.1 % (0.0-4.0); GRAN # 4.4 K/mm3 (1.4-6.5); HEMOGLOBIN 11.7 g/dl (12.5-16.0); LYMPH # 1.7 K/mm3 (1.2-3.4); LYMPH % 23.2 % (20.0-51.0); MEAN CELL VOLUME 90 fl (80.0-100.0); MEAN CORPUSCULAR HEMOGLOBIN 29 pg (27-31); MEAN CORPUSCULAR HGB CONC 32 g/dl (33.0-37.0); MEAN PLATELET VOLUME 8.5 fl (7.4-10.4); MONO # 0.7 K/mm3 (0.1-0.6); MONO % 9.6 % (1.7-9.3); PLATELET COUNT 307 K/mm3 (130-400); RED BLOOD COUNT 4.01 M/mm3 (4.10-5.30); REDCELL DISTRIBUTION WIDTH-CV 12.7 % (11.5-14.5)
[2021-12-11 09:37] LABS: HEMATOCRIT 36.1 % (37.0-47.0)
[2021-12-11 09:52] LABS: ALBUMIN 3.5 gm/dL (3.4-4.8); CALCIUM 9.6 mg/dL (8.4-10.2); CREATININE, serum 0.9 mg/dL (0.57-1.11); POTASSIUM 4.8 mmol/L (3.5-4.5)
== END ==
LOC: COL.LAB 09:07
PROVIDERS: Internal Medicine
DX: E10.9 Type 1 diabetes mellitus without complications (principal); I10 Essential (primary) hypertension

== ENCOUNTER 2022-01-07 05:07 | Day surgery (SDC) | payer OTHER ==
[~2022-01-07] VITALS: Ht 160 cm; Wt 84.0 kg
[2022-01-07] VITALS (10 sets, daily range): BP systolic 110–128; BP diastolic 49–75; PULSE 56–68; TEMP 97–98.2
[2022-01-07] MEDS ORDERED: HUMALOG100 U/ML SQ (05:47)
[2022-01-07] MEDS ORDERED: PRINIVIL20 MG PO (05:48)
--- NOTE | 2022-01-07 06:55 | NUR ---
PT was taken to the PACU by Ministerio to recieve a block
--- NOTE | 2022-01-07 11:42 | NUR ---
PT TO ROOM 332 PER BED WITH REPORT FROM ALISSA CARMICHAEL PACU @1050. PT IS A/O X3 LUNGS CTA, BOWEL SOUNDS PRESENT. LEFT LEG IN OCCLUSIVE BULKY ZEHRA WRAP. PT DENIES PAIN AT THIS TIME. IV TO PUMP AND SCDS PLACED.
--- NOTE | 2022-01-07 11:45 | NUR ---
CALLED CONSULT FOR MEDICAL MANGEMENT TO ENIO RAMON.
--- NOTE | 2022-01-07 11:50 | NUR ---
CALLED CONSULT TO DR. GUILLERMO ID.
--- NOTE | 2022-01-07 16:52 | NUR ---
PT UP WITH THERAPY AMBULATING IN HALLS. RETURNED TO RECLINER. UP TO BATHROOM PRN. VOIDING NO ISSUES AT THIS TIME. REINFORCED DRESSING WITH ABD AND ZEHRA WRAP. PT OOZING AFTER AMBULATION WITH THERAPY.
--- NOTE | 2022-01-07 23:28 | NUR ---
PATIENT IN CHAIR ON ROOM ENTRY. ALERT AND ORIENTED. HS MEDS PER EMAR. PATIENT DENYING PAIN AND REFUSED TYLENOL AND TORADOL DOSE. PATIENT ALSO REFUSED SENOKOT AT THIS TIME. LLE DRESSING CDI. ICE IN PLACE. DENIES ADDITIONAL NEEDS.
[2022-01-08 00:04] VITALS: BP 103/56; PULSE 58; TEMP 98.5
[2022-01-08 01:00] VITALS: BP 114/62; PULSE 64; TEMP 98.7
--- NOTE | 2022-01-08 01:11 | NUR ---
patient called out, iv beeping. iv to int per order. patient in chair, stated she needed to use the bathroom. legs were elevated and patient began scooting forward and slid out of chair onto floor when legs of chair dropped. patient landed on a pillow on her left hip. denies pain, vss. patient alert and oriented. did not hit head. patient assisted back to standing and ambulated with standby assist to bathroom and voided without issue. patient ambulated back to chair, legs elevated. continues to deny pain. rain morrison notified.
[2022-01-08 04:27] VITALS: BP 119/55; PULSE 65; TEMP 98.9
[2022-01-08 06:50] LABS: BASO % 0.3 % (0.0-2.0); GRAN % 84.3 % (42.2-75.2); HEMOGLOBIN 10.1 g/dl (12.5-16.0); LYMPH # 0.9 K/mm3 (1.2-3.4); LYMPH % 7.4 % (20.0-51.0); MEAN CELL VOLUME 90 fl (80.0-100.0); MEAN CORPUSCULAR HEMOGLOBIN 30 pg (27-31); MEAN CORPUSCULAR HGB CONC 33 g/dl (33.0-37.0); MEAN PLATELET VOLUME 9.2 fl (7.4-10.4); MONO # 0.9 K/mm3 (0.1-0.6); MONO % 7.6 % (1.7-9.3); PLATELET COUNT 325 K/mm3 (130-400); RED BLOOD COUNT 3.41 M/mm3 (4.10-5.30); REDCELL DISTRIBUTION WIDTH-CV 12.8 % (11.5-14.5)
[2022-01-08 06:54] LABS: HEMATOCRIT 30.8 % (37.0-47.0)
[2022-01-08 07:08] LABS: ALBUMIN 3.1 gm/dL (3.4-4.8); BILIRUBIN,TOTAL 0.2 mg/dL (0.2-1.2); CALCIUM 8.8 mg/dL (8.4-10.2); CREATININE, serum 1.01 mg/dL (0.57-1.11); POTASSIUM 4.8 mmol/L (3.5-4.5); TOTAL PROTEIN 6.5 gm/dL (6.2-8.1)
[2022-01-08 07:31] VITALS: BP 122/58; PULSE 68; TEMP 98.7
--- NOTE | 2022-01-08 11:01 | NUR ---
Cannon Fire Direction Specialist met with patient to discuss discharge planning. Patient lives alone in [place], [place] and sees Dr. Fermin Hernadez for primary care. Patient obtains medications from [facility] or from a home delivery program through her insurance. Patient has a cane that she uses as needed and reports independence with ADLS. Patient advised that her sister, Angélica (ph#[phone]) is her DPOA-HC. Patient plans to return home at time of discharge. Discharge Plan: Home
[2022-01-08] MEDS ORDERED: OSCAL 500 TAB500 MG PO (11:42)
[2022-01-08] MEDS ORDERED: VTAMINC250TA PO (11:43)
--- NOTE | 2022-01-08 12:30 | NUR ---
PT DISCHARGED TO HOME @ THIS TIME. PT LIVES ALONE BUT IS GETTING A RIDE HOME FROM A COWORKER VIA PRIVATE VEHICLE. PT ASSISTED TO ED ENTRANCE VIA WC PUSHED BY KAY MCLAIN. PT'S DRESSING TO RIGHT LEG WAS CHANGED THIS AM. DRESSING WAS SOAKED, DRAINAGE IS SEROUSANGUINEOUS, LLOYD INTACT TO BOTH INCISIONS. ABD, GAUZE ROLL ET NEW ZEHRA WRAP APPLIED. PT HAD REFUSED SEVERAL MEDICATIONS THIS AM ET ALSO REFUSES TO FOLLOW FALL PRECAUTIONS, WALKS AROUND ROOM BY SELF. PT EDUCATED SEVERAL TIMES ET REFUSES.
--- NOTE | 2022-01-08 14:02 | NUR ---
Initial visit; Patient works in Hospital [employer] and states she hears Resource Conservation Manager do "Morning Prayer," every morning and thanked Resource Conservation Manager for looking in on her and offering God's blessings.
== END 2022-01-08 12:30 | disposition home or self-care (01) ==
LOC: SDCO 05:07 → SURG 10:50 → SDCO 01-08 12:30
PROVIDERS: Physician Assistant
DX: T84.84XA Pain due to internal orthopedic prosthetic devices, implants and grafts, initial encounter (principal); Z79.4 Long term (current) use of insulin
CPT/HCPCS: OP; 99222; A9284; J0690; J1100; J1580; J1815; J1885; J2250; J2405; J2704; J2795; J3010; J7030

== ENCOUNTER 2022-03-12 09:17 | Emergency (ER) | payer OTHER ==
[~2022-03-12] VITALS: Ht 160 cm; Wt 75.0 kg
[~2022-03-12 09:17] MED LIST changes: +HUMALOG100 U/ML SQ; +VTAMINC250TA PO
[2022-03-12 09:19] VITALS: TEMP 98.5
[2022-03-12 10:14] LABS: ALBUMIN 4.1 gm/dL (3.4-4.8); BILIRUBIN,TOTAL 0.2 mg/dL (0.2-1.2); TOTAL PROTEIN 7.8 gm/dL (6.2-8.1)
[2022-03-12 10:20] VITALS: BP 164/39; PULSE 78
== END 2022-03-12 10:20 | disposition home or self-care (01) ==
LOC: COL.ER 09:17
PROVIDERS: Family Medicine
DX: E11.649 Type 2 diabetes mellitus with hypoglycemia without coma (principal)
CPT/HCPCS: J7042

== ENCOUNTER → 2022-03-18 | Outpatient (CLI) | payer OTHER ==
[2022-03-18 08:00] LABS: ALBUMIN 3.8 gm/dL (3.4-4.8); BILIRUBIN,TOTAL 0.3 mg/dL (0.2-1.2); CALCIUM 9.9 mg/dL (8.4-10.2); CHOLESTEROL RISK RATIO 3.5; CREATININE, serum 1.03 mg/dL (0.57-1.11); POTASSIUM 4.8 mmol/L (3.5-4.5); TOTAL PROTEIN 7.6 gm/dL (6.2-8.1)
[2022-03-18 08:14] LABS: THYROID STIMULATING HORMONE 2.47 uIU/mL (0.350-4.940)
== END ==
LOC: COL.LAB 07:05
DX: E10.9 Type 1 diabetes mellitus without complications (principal)

== ENCOUNTER 2022-09-26 08:10 | Emergency (ER) | payer OTHER ==
[~2022-09-26] VITALS: Ht 160 cm; Wt 75.0 kg
[2022-09-26 08:13] VITALS: TEMP 97.5
[2022-09-26 08:27] LABS: BASO # 0.1 K/mm3 (0.0-0.2); BASO % 0.9 % (0.0-2.0); EOS # 0.2 K/mm3 (0.0-0.7); EOS % 1.6 % (0.0-4.0); GRAN # 6.7 K/mm3 (1.4-6.5); GRAN % 64.2 % (42.2-75.2); HEMATOCRIT 39.4 % (37.0-47.0); HEMOGLOBIN 12.8 g/dl (12.5-16.0); LYMPH # 2.1 K/mm3 (1.2-3.4); LYMPH % 20.5 % (20.0-51.0); MEAN CELL VOLUME 89 fl (80.0-100.0); MEAN CORPUSCULAR HEMOGLOBIN 29 pg (27-31); MEAN CORPUSCULAR HGB CONC 33 g/dl (33.0-37.0); MEAN PLATELET VOLUME 8.7 fl (7.4-10.4); MONO # 1.3 K/mm3 (0.1-0.6); MONO % 12.6 % (1.7-9.3); PLATELET COUNT 388 K/mm3 (130-400); RED BLOOD COUNT 4.43 M/mm3 (4.10-5.30); REDCELL DISTRIBUTION WIDTH-CV 13.7 % (11.5-14.5)
[2022-09-26 08:46] LABS: ALBUMIN 4.1 gm/dL (3.4-4.8); BILIRUBIN,TOTAL 0.2 mg/dL (0.2-1.2); CREATININE, serum 0.76 mg/dL (0.57-1.11); POTASSIUM 3.9 mmol/L (3.5-4.5); TOTAL PROTEIN 7.9 gm/dL (6.2-8.1)
[2022-09-26 10:39] VITALS: BP 158/64; PULSE 82
== END 2022-09-26 10:39 | disposition home or self-care (01) ==
LOC: COL.ER 08:10
PROVIDERS: Emergency Medicine
DX: E10.649 Type 1 diabetes mellitus with hypoglycemia without coma (principal); R55 Syncope and collapse

== ENCOUNTER → 2022-10-16 | Outpatient (CLI) | payer OTHER | LOC: COL.LAB 09:44 | DX: E10.9 Type 1 diabetes mellitus without complications (principal) ==

== ENCOUNTER 2022-11-27 09:01 | Emergency (ER) | payer OTHER ==
[~2022-11-27] VITALS: Ht 160 cm; Wt 75.0 kg
[2022-11-27 09:09] VITALS: TEMP 97.6
[2022-11-27 10:45] VITALS: BP 139/87; PULSE 77
== END 2022-11-27 10:45 | disposition home or self-care (01) ==
LOC: COL.ER 09:01
DX: E10.649 Type 1 diabetes mellitus with hypoglycemia without coma (principal)